=== PATIENT | male | born 2005 | race Hispanic/Latino ===

== ENCOUNTER 2024-03-30 20:08 | Emergency (ER) | payer SELFPAY ==
[~2024-03-30] VITALS: Ht 177.8 cm; Wt 65.8 kg
[2024-03-30] MEDS ORDERED: PENIcillin G benZATHine L-A 1.2 MILUNITS/2 ML SYG IM ONE (21:00)
[2024-03-30 21:55] LABS: APPEARANCE,URINE CLEAR (CLEAR); BILIRUBIN,URINE NEGATIVE (NEGATIVE); COLOR,URINE YELLOW (YELLOW); GLUCOSE, URINE (UA) NEGATIVE (NEGATIVE); KETONES,URINE NEGATIVE (NEGATIVE); LEUKOCYTE ESTERASE ,URINE NEGATIVE Leu/uL (NEGATIVE); NITRATE,URINE NEGATIVE (NEGATIVE); OCCULT BLOOD,URINE NEGATIVE (NEGATIVE); PH,URINE 6.5 (5.0-8.0); PROTEIN,URINE 30 mg/dL (NEGATIVE); UROBILINOGEN,URINE 0.2 mg/dL (0.2-1.0)
[2024-03-30 21:59] LABS: ADD UA MICROSCOPIC YES
[2024-03-30 22:01] LABS: MUCUS,URINE MOD LPF (None Seen); SQUAMOUS EPITHELIAL CELL,UR RARE /HPF (0-2); WBC,URINE 0-1 /HPF (0-1)
[2024-03-30] MEDS ORDERED: DOXY100T21 PO (22:08)
[2024-03-30 22:31] VITALS: BP 128/88; PULSE 66; RESP 20; TEMP 98.6; O2SAT 100
[2024-03-30] MEDS: cefTRIAXone 1G VIAL IM ONE (22:50)
[2024-03-30 23:27] LABS: RAPID PLASMA REAGIN REACTIVE (NONREACTIVE)
[2024-03-31 04:07] LABS: RAPID PLASMA REAGIN TITER REACTIVE 1:8 (NONREACTIVE)
== END 2024-03-30 22:56 | disposition home or self-care (01) ==
LOC: EDH 20:08
DX: N48.5 Ulcer of penis (principal)
CPT/HCPCS: 99283; 86780; 86592; 87491; 87591; 81001; 36415; 96372; J0696; J0561

== ENCOUNTER 2024-04-03 20:46 | Emergency (ER) | payer SELFPAY ==
[~2024-04-03] VITALS: Ht 170.2 cm; Wt 66.2 kg
[~2024-04-03 20:46] MED LIST: DOXY100T21 PO
[2024-04-03] MEDS: PENIcillin G benZATHine L-A 1.2 MILUNITS/2 ML SYG IM ONE (22:47)
[2024-04-04 00:07] VITALS: BP 118/82; PULSE 80; RESP 20; TEMP 97.9; O2SAT 99
== END 2024-04-04 00:13 | disposition home or self-care (01) ==
LOC: EDH 20:46
DX: A53.9 Syphilis, unspecified (principal); N48.5 Ulcer of penis; Z79.899 Other long term (current) drug therapy
CPT/HCPCS: 99283; 96372; J0561